=== PATIENT | female | born 2000 | race Caucasian/White ===

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

== ENCOUNTER → 2021-01-11 08:41 | Outpatient (CLI) | payer MEDICAID, SELFPAY ==
--- NOTE | ~2021-01-11 | US_ITS ---
US breast BI complete DATE: 01/11/2021 09:06 INDICATION: Bilateral clear yellow nipple discharge TECHNIQUE: Real-time imaging of both complete breasts COMPARISON: None FINDINGS: No suspicious mass or shadowing of either breast is evident. No cyst or other significant f inding is noted. IMPRESSION: BI-RADS Category 1: Negative Reviewed, dictated and finalized at Location A. Reviewed, dictated and finalized at location A. RUMENT MAKER
== END ==
PROVIDERS: Visit Provider Nurse Practitioner
DX: N64.52 Nipple discharge (principal)
CPT/HCPCS: 76641

== ENCOUNTER 2021-07-31 11:15 | Outpatient (CLI) | payer MEDICAID, SELFPAY ==
--- NOTE | ~2021-07-31 | XR_ITS ---
EXAMINATION: XR ankle LT min 3V, XR foot LT min 3V DATE: 07/31/2021 11:41 INDICATION: Lateral sided left foot and ankle pain post fall TECHNIQUE: 1. Anteroposterior, mortise, additional oblique and lateral view of the left ankle were obtained. 2. Dorsoplantar, two oblique and lateral views of the left foot were obtained. COMPARISON: None. FINDINGS: Alignment of the left foot and ankle is normal. No fracture or osteochondral lesion. Joint spaces are well maintained. No ankle joint effusion. The soft tissues are unremarkable. IMPRESSION: 1. Negative left foot and ankle radiographs. Reviewed, dictated and finalized at location A. IMPRESSION: 1. Negative left foot and ankle radiographs.
== END 2021-07-31 11:16 | disposition home or self-care (01) ==
LOC: ANHIMG 11:21
PROVIDERS: PCP Pediatrics; Visit Provider Pediatrics
DX: S99.922A Unspecified injury of left foot, initial encounter (principal); S99.912A Unspecified injury of left ankle, initial encounter
CPT/HCPCS: 73610; 73630

== ENCOUNTER 2023-06-01 21:33 | Emergency (ER) | payer OTHER, BC, SELFPAY ==
[2023-06-01 21:35] VITALS: BP 152/109; PULSE 100; RESP 16; TEMP 36.8; O2SAT 100
[2023-06-01 23:03] VITALS: BP 159/110; PULSE 99; RESP 15; TEMP 36.8; O2SAT 100
--- NOTE | 2023-06-02 00:07 | ED.GENADULT ---
HPI - General Adult General Chief complaint: Skin/Abscess/Foreign Body Stated complaint: rock in ear Time Seen by Provider: 06/01/23 23:20 Source: patient Mode of arrival: ambulatory Limitations: no limitations History of Present Illness HPI narrative: This is a 22-year-old female who presents to the ED with chief complaint of right ear pain and possible foreign body. Patient states this been going on for the past couple of weeks. She has tried flushing the ear multiple times without relief. She states her parents had a in the ER scope that they used thought she saw something stuck in there. States she has been using cotton swab Q-tips to try to clean the ear. States she tried an [id number] earwax removal kit 1 time with no relief. Denies fevers, chills, sore throat, congestion Related Data Home Medications Medication Instructions Recorded Confirmed norethindrone acetate 1.5 1 tablet PO DAILY 09/09/21 mg-ethinyl estradiol 30 mcg tablet (Obed) Allergies Allergy/AdvReac Type Severity Reaction Status Date / Time No Known Allergies Allergy Verified 10/16/21 15:11 Review of Systems Review of Systems: All systems as dictated in [facility] Past Medical History Medical History (Updated 06/02/23 @ 00:36 by Varun Tran PA-C) Ankle sprain Left ankle pain Wears glasses Family History Family History (Updated 09/09/21 @ 13:07 by Giselle Lal) Unknown Asthma Depression Arthritis Social History Social History (Updated 10/16/21 @ 15:12 by Belia Romero) Smoking status: Never smoker Alcohol intake: never Substance use: unknown Occupation/Education: student Gender identity (if verbalized by the patient): Female Exam Narrative: GENERAL: Well-appearing, well-nourished, and in no acute distress. HEAD: Normocephalic, atraumatic. EYES: PERRLA and EOMI. ENT: Right ear canal is markedly inflamed. I do visualize a impacted cerumen collection at the tympanic membrane. TM is obstructed. No purulent drainage noted. Left TM unremarkable. Nares clear, no rhinorrhea or epistaxis. Mucous membranes moist. Oropharynx without tonsillar hypertrophy exudate or other lesions. NECK: Supple. No adenopathy or masses. CHEST: No respiratory distress. Clear to auscultation. No wheezes rales or rhonchi HEART: Regular rate and rhythm. No murmur heard. Normal peripheral pulses. ABDOMEN: Soft, nontender, nondistended, normal active bowel sounds. MSK: Normal range of motion. No edema. SKIN: Warm, dry, no rash. NEURO: Alert and oriented x3. No focal deficits. PSYCH: Normal mood and affect. Course Vital Signs Vital signs: Vital Signs Temperature 98.2 F 06/01/23 21:35 Pulse Rate 100 06/01/23 21:35 Respiratory Rate 16 06/01/23 21:35 Blood Pressure 152/109 H 06/01/23 21:35 Pulse Oximetry 100 06/01/23 21:35 Oxygen Delivery Room Air 06/01/23 21:35 Temperature 98.1 F 06/02/23 00:54 Pulse Rate 88 06/02/23 00:54 Respiratory Rate 14 06/02/23 00:54 Blood Pressure 126/82 06/02/23 00:54 Pulse Oximetry 98 06/02/23 00:54 Oxygen Delivery Room Air 06/01/23 21:35 Medical Decision Making MDM Narrative Medical decision making narrative: This is a 22-year-old female who presents to the ED with chief complaint of right cerumen impaction. Vitals are normal. Exam does reveal impacted cerumen and erythematous ear canal. Attempted to use a loop curette to dislodge the cerumen without success. Also tried to use saline flushes irrigation without success. Provided on dose of ciprofloxacin for possible otitis externa. Prescription for Ciprodex given. Encouraged her to try the earwax removal kit [id number] every day for a week. Referral for ENT given. She is stable for discharge. She is understanding and agreeable with plan for discharge and follow-up with PCP and ENT. Vital Signs Vital Signs: Vital Signs Temperature 98.2 F
[2023-06-02] MEDS: CIPROFLOXACIN HC OTIC 10 ML 3 DROP RIGHT EAR (00:50)
[2023-06-02 00:54] VITALS: BP 126/82; PULSE 88; RESP 14; TEMP 36.7; O2SAT 98
== END 2023-06-02 00:55 | disposition home or self-care (01) ==
PROVIDERS: Emergency Provider Physician Assistant
DX: H92.01 Otalgia, right ear (principal)
CPT/HCPCS: 99283; A9270